=== PATIENT | male | born 1990 | race Caucasian/White ===

== ENCOUNTER 2020-07-14 13:21 | Emergency (ER) | payer OTHER ==
[2020-07-14 13:34] VITALS: BP 171/77; PULSE 101; RESP 18; TEMP 97.9
--- NOTE | 2020-07-14 14:07 | ED ---
General Adult HPI - General Chief complaint: Extremity Problem,Nontraumatic Stated complaint: Head Pressure, Poss Sinus Infection Time Seen by Provider: 07/14/20 13:48 Source: patient, RN notes reviewed, old records reviewed Mode of arrival: ambulatory Limitations: no limitations - History of Present Illness Initial comments: 29-year-old male with muscle cramps in his right leg. Symptoms have been ongoing for the past 4 days. He states his primary care physician was not available and so he presents to the emergency department. He states the cramps is keeping him up at night. He denies any injury to the right. 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 He states he has been urinating normally. No significant vomiting. No focal numbness or weakness. He is taking multiple supplements and has been taking [id number] testosterone supplement which she stopped approximately one week ago. - Related Data Previous Rx's Medication Instructions Recorded Azithromycin [Zithromax Z-pack] 250 mg PO DIRECTED #6 tab 04/26/14 Allergies Allergy/AdvReac Type Severity Reaction Status Date / Time Penicillins Allergy Anaphylaxis Verified 07/14/20 13:34 Review of Systems ROS Statement: Those systems with pertinent positive or pertinent negative responses have been documented in the HPI. ROS Other: All systems not noted in ROS Statement are negative. Past Medical History Past Medical History: No Reported History History of Any Multi-Drug Resistant Organisms: None Reported Past Surgical History: No Surgical Hx Reported Past Psychological History: Anxiety Smoking Status: Current every day smoker Past Alcohol Use History: Occasional Past Drug Use History: Cocaine, Marijuana General Exam Limitations: no limitations General appearance: alert, in no apparent distress Head exam: Present: atraumatic, normocephalic Eye exam: Present: normal appearance, PERRL ENT exam: Present: normal exam Neck exam: Present: normal inspection. Absent: tenderness, meningismus Respiratory exam: Present: normal lung sounds bilaterally. Absent: respiratory distress Cardiovascular Exam: Present: regular rate, normal rhythm GI/Abdominal exam: Present: soft. Absent: distended, tenderness, guarding, rebound Extremities exam: Present: other (Compartments are soft, no muscle spasm, distal pulses intact, normal cap refill, no induration, no erythema, no crepitus, no s igns of infection.) Neurological exam: Present: alert, oriented X3, CN II-XII intact, normal gait. Absent: motor sensory deficit Psychiatric exam: Present: normal affect, normal mood Course Vital Signs 07/14/20 13:29 Temperature 97.9 F Pulse Rate 101 H Respiratory 18 Rate Blood Pressure 171/77 O2 Sat by Pulse 100 Oximetry - Reevaluation(s) Reevaluation #1: 07/14/20 15:22 Patient does later admit to injecting testosterone into his right lower extremity, but and lateral thigh. Medical Decision Making - Medical Decision Making 29-year-old male with muscle spasm to the right leg. He has admitted that he is injected testosterone intravenous leg, lateral thigh and buttock. There is no tenderness on palpation. There is no crepitus. There is no erythema, no induration, no external signs of infection. All compartments are soft, there is normal sensation, normal cap refill, normal pulses. Patient has an elevated white blood cell count at 18.6 with no other infectious complaints. No fever. No cough. No abdominal pain or vomiting. No dysuria. His white lites are within normal limits, he has a normal creatinine kinase. I did discuss the possibility of infection in this leg and the patient will monitor closely for any pain complaints, redness, swelling or new symptoms. He will follow-up with his primary care physician regarding this leukocytosis. Will return to [facility] department with any worsening pain, fever, any external signs of infection in the right leg or any new symptoms peroid. Diagnosis: Muscle spasms, leukocytosis. - Lab Data Result diagrams: 07/14/20 14:20 07/14/20 14:20 Lab Results 07/14/20 07/14/20 Range/Units 14:20 14:20 WBC 18.6 H (3.8-10.6) k/uL RBC 5.79 (4.30-5.90) m/uL Hgb 17.2 (13.0-17.5) gm/dL Hct 52.0 (39.0-53.0) % MCV 89.7 (80.0-100.0) fL MCH 29.8 (25.0-35.0) pg MCHC 33.2 (31.0-37.0) g/dL RDW 13.7 (11.5-15.5) % Plt Count 221 (150-450) k/uL Neutrophils % 86 % Lymphocytes % 8 % Monocytes % 5 % Eosinophils % 0 % Basophils % 0 % Neutrophils # 16.0 H (1.3-7.7) k/uL Lymphocytes # 1.4 (1.0-4.8) k/uL Monocytes # 0.9 (0-1.0) k/uL Eosinophils # 0.1 (0-0.7) k/uL Basophils # 0.1 (0-0.2) k/uL Sodium 137 (137-145) mmol/L Potassium 4.6 (3.5-5.1) mmol/L Chloride 102 (98-107) mmol/L Carbon Dioxide 26 (22-30) mmol/L Anion Gap 9 mmol/L BUN 20 (9-20) mg/dL Creatinine 1.09 (0.66-1.25) mg/dL Est GFR (CKD-EPI)AfAm >90 (>60 ml/min/1.73 sqM) Est GFR (CKD-EPI)NonAf >90 (>60 ml/min/1.73 sqM) Glucose 112 H (74-99) mg/dL Calcium 10.2 (8.4-10.2) mg/dL Magnesium 1.8 (1.6-2.3) mg/dL Total Bilirubin 0.5 (0.2-1.3) mg/dL AST 17 (17-59) U/L ALT 16 (4-49) U/L Alkaline Phosphatase 79 (38-126) U/L Creatine Kinase 66 (55-170) U/L Total Protein 8.2 (6.3-8.2) g/dL Albumin 5.0 (3.5-5.0) g/dL Disposition Clinical Impression: Muscle spasm, Leukocytosis Disposition: HOME SELF-CARE Condition: Fair Instructions (If sedation given, give patient instructions): Muscle Spasm (ED), Leukocytosis (ED) Additional Instructions: Please follow with her primary care physician for repeat lab testing in one week. Please return to the emergency department with any worsening pain, signs of infection in the right leg, new symptoms, or fever. Is patient prescribed a controlled substance at d/c from ED?: No Referrals: Amor George MD [Primary Care Provider] - 1-2 days Time of Disposition: 15:24
[2020-07-14 14:47] LABS: ALT 16 U/L (4-49); AST 17 U/L (17-59); African American GFR (CKD) >90 (>60 ml/min/1.73 sqM); Alkaline Phosphatase 79 U/L (38-126); Anion Gap 9 mmol/L; Blood Urea Nitrogen 20 mg/dL (9-20); Calcium 10.2 mg/dL (8.4-10.2); Carbon Dioxide 26 mmol/L (22-30); Chloride 102 mmol/L (98-107); Creatine Kinase 66 U/L (55-170); Glucose 112 mg/dL (74-99); Magnesium 1.8 mg/dL (1.6-2.3); Non-African American GFR(CKD) >90 (>60 ml/min/1.73 sqM); Potassium 4.6 mmol/L (3.5-5.1); Sodium 137 mmol/L (137-145); Total Bilirubin 0.5 mg/dL (0.2-1.3); Total Protein 8.2 g/dL (6.3-8.2)
[2020-07-14 14:50] LABS: Basophils # (A) 0.1 k/uL (0-0.2); Basophils % (A) 0 %; Eosinophils # (A) 0.1 k/uL (0-0.7); Eosinophils % (A) 0 %; HGB 17.2 gm/dL (13.0-17.5); Lymphocytes # (A) 1.4 k/uL (1.0-4.8); Lymphocytes % (A) 8 %; MCH 29.8 pg (25.0-35.0); MCHC 33.2 g/dL (31.0-37.0); MCV 89.7 fL (80.0-100.0); Mean Platelet Volume 8.4; Monocytes # (A) 0.9 k/uL (0-1.0); Monocytes % (A) 5 %; Neutrophils % (A) 86 %; Platelet Count 221 k/uL (150-450); RBC 5.79 m/uL (4.30-5.90); RDW 13.7 % (11.5-15.5); WBC 18.6 k/uL (3.8-10.6)
== END 2020-07-14 15:30 | disposition home or self-care (01) ==
LOC: EC 13:21
DX: R25.2 Cramp and spasm (principal); D72.829 Elevated white blood cell count, unspecified; F17.200 Nicotine dependence, unspecified, uncomplicated; Z88.0 Allergy status to penicillin
CPT/HCPCS: 36415; 80053; 82550; 83735; 85025; 99283

== ENCOUNTER 2020-09-30 15:38 | Emergency (ER) | payer OTHER ==
[2020-09-30 15:45] VITALS: RESP 18
[2020-09-30] MEDS ORDERED: OXYMETAZOLINE 0.05% NASL SPRAY 1 SPRAY BOTTLE NASAL STA (16:17)
[2020-09-30] MEDS ORDERED: LIDOCAINE/EPINEPHR/TETRACAINE 5 ML BOTTLE TOPICAL STA (16:17)
--- NOTE | 2020-09-30 16:43 | ED ---
General Adult HPI - General Chief complaint: ENT Stated complaint: Nose Bleed Time Seen by Provider: 09/30/20 15:56 Source: patient, RN notes reviewed Mode of arrival: ambulatory Limitations: no limitations - History of Present Illness Initial comments: 29-year-old male presents to the emergency room for a chief complaint of nosebleed. Patient states since Wednesday he has had intermittent nosebleed out of the right nostril. States he went to another emergency center and was given a nose clamp. States this did help with that time however he was at work today and started to bleed again. Patient put some Kleenex in his nose and came back to this emergency room. Patient denies any blood going down the back of his throat. Denies blood coming out of both nostrils.Patient has no other complaints at this time including shortness of breath, chest pain, abdominal pain, nausea or vomiting, headache, or visual changes. - Related Data Previous Rx's Medication Instructions Recorded Azithromycin [Zithromax Z-pack (6 250 mg PO DIRECTED #6 tab 04/26/14 tabs)] Allergies Allergy/AdvReac Type Severity Reaction Status Date / Time Penicillins Allergy Anaphylaxis Verified 09/30/20 15:42 Review of Systems ROS Statement: Those systems with pertinent positive or pertinent negative responses have been documented in the HPI. ROS Other: All systems not noted in ROS Statement are negative. Past Medical History Past Medical History: No Reported History History of Any Multi-Drug Resistant Organisms: None Reported Past Surgical History: No Surgical Hx Reported Past Psychological History: Anxiety Smoking Status: Current every day smoker Past Alcohol Use History: Occasional Past Drug Use History: Cocaine, Marijuana General Exam Limitations: no limitations General appearance: alert, in no apparent distress Head exam: Present: atraumatic, normocephalic, normal inspection Eye exam: Present: normal appearance, PERRL, EOMI. Absent: scleral icterus, conjunctival injection, periorbital swelling ENT exam: Present: normal exam, normal oropharynx (No blood in the back of the oropharynx.), mucous membranes moist, TM's normal bilaterally, other (No active bleeding out of the nose.) Neck exam: Present: normal inspection, full ROM. Absent: tenderness, meningismus, lymphadenopathy Respiratory exam: Present: normal lung sounds bilaterally. Absent: respiratory distress, wheezes, rales, rhonchi, stridor Cardiovascular Exam: Present: regular rate, normal rhythm, normal heart sounds. Absent: systolic murmur, diastolic murmur, rubs, gallop, clicks GI/Abdominal exam: Present: soft, normal bowel sounds. Absent: distended, tenderness, guarding, rebound, rigid Course Vital Signs 09/30/20 09/30/20 15:43 16:51 Temperature 98.7 F 98.6 F Pulse Rate 102 H 80 Respiratory 18 18 Rate Blood Pressure 132/82 136/98 O2 Sat by Pulse 100 100 Oximetry Medical Decision Making - Medical Decision Making Patient presents with no active bleeding from the right nostril. 2 sprays of Afrin was applied and nose was clamped for 20 minutes. Patient was able to am bulate around the emergency room without recurrence of bleeding. As this is patient's second ER visit for nosebleed I did offer nasal packing however patient refuses stating she would try to use Afrin at home if it starts again. If he cannot get it to stop he will return for nasal packing at that time. Disposition Clinical Impression: Nosebleed Disposition: HOME SELF-CARE Condition: Good Instructions (If sedation given, give patient instructions): Nosebleed (ED) Additional Instructions: Bleeding recurs spray 2 sprays of Afrin in each nostril and clamp for 20 minutes. If this does not help repeat this process for more time. If bleeding still does not stop return to the emergency room for nasal packing. Otherwise follow-up with ENT. Return for any worsening symptoms. Is patient prescribed a controlled substance at d/c from ED?: No Referrals: Amor George MD [Primary Care Provider] - 1-2 days Kennedy Perry MD [STAFF PHYSICIAN] - 1-2 days Time of Disposition: 16:53
[2020-09-30 16:52] VITALS: BP 136/98; PULSE 80; TEMP 98.6
== END 2020-09-30 17:02 | disposition home or self-care (01) ==
LOC: EC 15:38
DX: R04.0 Epistaxis (principal); F17.200 Nicotine dependence, unspecified, uncomplicated; Z88.0 Allergy status to penicillin
CPT/HCPCS: 99283

== ENCOUNTER 2020-10-04 18:15 | Emergency (ER) | payer OTHER ==
[2020-10-04] MEDS ORDERED: OXYMETAZOLINE 0.05% NASL SPRAY 1 SPRAY BOTTLE NASAL STA ×2 (18:52→20:15)
[2020-10-04] MEDS ORDERED: SILVER NITRATE APPLICATOR 1 EACH STICK..EA. TOPICAL STA (19:26)
--- NOTE | 2020-10-04 19:42 | ED ---
ENT HPI - General Chief complaint: ENT Stated complaint: Bloody Nose Time Seen by Provider: 10/04/20 18:37 Source: patient Mode of arrival: ambulatory Limitations: no limitations - History of Present Illness Initial comments: 29-year-old male presenting to emergency Department with chief complaint of a bloody nose. Patient states she has been having intermittent episodes of epistaxis for the past 4 days. Patient states he was able to typically keep it under control with pressure and [id number] medication. However, states the bleeding that began today would not resolve. He denies any use of blood thinners or any trauma to the nose. States about 4-5 days ago he scratched the inside of his nausea well Gracia usual because he thought there was some cement in there from his job. He reports the bleeding is from the right nostril only. - Related Data Previous Rx's Medication Instructions Recorded Azithromycin [Zithromax Z-pack (6 250 mg PO DIRECTED #6 tab 04/26/14 tabs)] Allergies Allergy/AdvReac Type Severity Reaction Status Date / Time Penicillins Allergy Anaphylaxis Verified 10/04/20 18:19 Review of Systems ROS Statement: Those systems with pertinent positive or pertinent negative responses have been documented in the HPI. ROS Other: All systems not noted in ROS Statement are negative. Past Medical History Past Medical History: No Reported History History of Any Multi-Drug Resistant Organisms: None Reported Past Surgical History: No Surgical Hx Reported Past Psychological History: Anxiety Smoking Status: Current every day smoker Past Alcohol Use History: Occasional Past Drug Use History: Cocaine, Marijuana General Exam Limitations: no limitations General appearance: alert, in no apparent distress Head exam: Present: atraumatic, normocephalic, normal inspection Eye exam: Present: normal appearance, PERRL, EOMI Pupils: Present: normal accommodation ENT exam: Present: normal exam, normal oropharynx (Right nostril epistaxis. Not able to detect the source of the bleeding.), mucous membranes moist, TM's normal bilaterally, normal external ear exam Neck exam: Present: normal inspection, full ROM. Absent: tenderness Respiratory exam: Present: normal lung sounds bilaterally. Absent: respiratory distress, wheezes, rales Cardiovascular Exam: Present: regular rate, normal rhythm, normal heart sounds. Absent: systolic murmur, diastolic murmur Extremities exam: Present: normal inspection, full ROM, normal capillary refill. Absent: tenderness, pedal edema, joint swelling, calf tenderness Back exam: Present: normal inspection, full ROM. Absent: tenderness, CVA tenderness (R), CVA tenderness (L) Neurological exam: Present: alert, oriented X3 Psychiatric exam: Present: normal affect, normal mood Skin exam: Present: warm, dry, intact, normal color Course Vital Signs 10/04/20 10/04/20 10/04/20 18:18 18:27 19:00 Temperature 97.3 F L Pulse Rate 99 Respiratory 18 Rate Blood Pressure 167/138 146/94 152/95 O2 Sat by Pulse 100 Oximetry Medical Decision Making - Medical Decision Making 29-year-old male presenting to the emergency department chief complaint of bloody nose. Physical examination, patient does have right-sided epistaxis. I was not able to visualize source of bleeding. initially I applied Afrin and direct pressure. This work for a short period time that the epistaxis resumed. Nasal packing was performed with a Rhino Rocket. Patient tolerated procedure well. He was given Tylenol 3 starter pack for pain. He has an appointment on Wednesday to see Dr. Peres. Patient will be be started on antibiotics. Return parameters thoroughly discussed with patient was understanding and agreeable. Case discussed with physician. Disposition Clinical Impression: Right-sided epistaxis Disposition: HOME SELF-CARE Condition: Stable Instructions (If sedation given, give patient instructions): Nosebleed (ED) Additional Instructions: Continue to use the Afrin. Follow up with an ENT specialist. Return to emergency department if symptoms worsen. Is patient prescribed a controlled substance at d/c from ED?: No Referrals: Amor George MD [Primary Care Provider] - 1-2 days Kennedy Perry MD [STAFF PHYSICIAN] - 1-2 days Time of Disposition: 20:16
[2020-10-04] MEDS ORDERED: ACET/COD 300 MG/30 MG STARTER PACK 6 TAB BTL PO STA (20:46)
[2020-10-04 21:31] VITALS: BP 134/90; PULSE 90; RESP 16; TEMP 98.6
== END 2020-10-04 21:30 | disposition home or self-care (01) ==
LOC: EC 18:15
DX: R04.0 Epistaxis (principal); F17.200 Nicotine dependence, unspecified, uncomplicated; Z88.0 Allergy status to penicillin
CPT/HCPCS: 30901; 99283

== ENCOUNTER 2021-05-14 | Emergency (ER) | payer OTHER | END 2021-05-14 09:38 | disposition home or self-care (01) | CPT/HCPCS: 36415; 74177; 80053; 81001; 83690; 85025; 93005; 96361; 96374; 96375; 99284 ==

== ENCOUNTER 2021-05-16 07:12 | Emergency (ER) | payer OTHER ==
[2021-05-16 07:17] VITALS: RESP 18
[2021-05-16] MEDS ORDERED: KETOROLAC 15 MG/ML 1 ML VIAL IM STA (07:28)
[2021-05-16] MEDS ORDERED: traMADol 50 MG STARTER PACK 3 TAB BTL PO STA (07:29)
[2021-05-16] MEDS ORDERED: TAMSULOSIN 0.4 MG CAP.ER.24H PO STA (07:29)
--- NOTE | 2021-05-16 07:35 | ED ---
General Adult HPI - General Chief complaint: Abdominal Pain Stated complaint: RT side flank pain Time Seen by Provider: 05/16/21 07:15 Source: patient, RN notes reviewed, old records reviewed Mode of arrival: ambulatory Limitations: no limitations - History of Present Illness Initial comments: This is a 30-year-old male who presents emergency department stating that he was diagnosed with kidney stones last emesis here. Patient states the flank pain continues and he has yet to follow up with urology. She states she was discharged without any medications. Patient states the pain is been ongoing since he left. Patient denies any fever chills. Patient denies any hematuria or frequency. Patient denies any dysuria. Patient denies any abdominal pain. Patient states the pain is mostly in the right flank just like it was last time. Patient a computed tomography scan last time showing only stones in the kidney and stones in the bladder no stones that were obstructing. Patient denies any vomiting or diarrhea patient denies any chest pain or difficulty breathing - Related Data Previous Rx's Medication Instructions Recorded Azithromycin [Zithromax Z-pack (6 250 mg PO DIRECTED #6 tab 04/26/14 tabs)] Doxycycline Monohydrate [Monodox] 100 mg PO Q12HR #20 cap 10/04/20 Ketorolac [Toradol] 10 mg PO Q6HR #15 tab 05/16/21 Tamsulosin [Flomax] 0.4 mg PO DAILY #10 cap 05/16/21 Allergies Allergy/AdvReac Type Severity Reaction Status Date / Time Penicillins Allergy Anaphylaxis Verified 05/16/21 07:14 Review of Systems ROS Statement: Those systems with pertinent positive or pertinent negative responses have been documented in the HPI. ROS Other: All systems not noted in ROS Statement are negative. Past Medical History Past Medical History: No Reported History Additional Past Medical History / Comment(s): kidney stones History of Any Multi-Drug Resistant Organisms: None Reported Past Surgical History: No Surgical Hx Reported Past Psychological History: Anxiety Smoking Status: Current every day smoker Past Alcohol Use History: None Reported Past Drug Use History: Cocaine, Marijuana General Exam - General Exam Comments Initial Comments: GENERAL: Patient is well-developed and well-nourished. Patient is nontoxic and well- hydrated and is in mild distress. ENT: Neck is soft and supple. No significant lymphadenopathy is noted. Oropharynx is clear. Moist mucous membranes. Neck has full range of motion without eliciting any pain. EYES: The sclera were anicteric and conjunctiva were pink and moist. Extraocular movements were intact and pupils were equal round and reactive to light. Eyelids were unremarkable. PULMONARY: Unlabored respirations. Good breath sounds bilaterally. No audible rales rhonchi or wheezing was noted. CARDIOVASCULAR: There is a regular rate and rhythm without any murmurs gallops or rubs. ABDOMEN: Soft and nontender with normal bowel sounds. SKIN: Skin is clear with no lesions or rashes and otherwise unremarkable. NEUROLOGIC: Patient is alert and oriented x3. Cranial nerves II through XII are grossly intact. Motor and sensory are also intact. Normal speech, volume and content. Symmetrical smile. MUSCULOSKELETAL: Normal extremities with adequate strength and full range of motion. LYMPHATICS: No significant lymphadenopathy is noted PSYCHIATRIC: Normal psychiatric evaluation. Limitations: no limitations Course Vital Signs 05/16/21 07:14 Temperature 98 F Pulse Rate 74 Respiratory 18 Rate Blood Pressure 153/88 O2 Sat by Pulse 100 Oximetry Disposition Clinical Impression: Kidney stone Disposition: HOME SELF-CARE Instructions (If sedation given, give patient instructions): Kidney Stones (ED) Prescriptions: Tamsulosin [Flomax] 0.4 mg PO DAILY #10 cap Ketorolac [Toradol] 10 mg PO Q6HR #15 tab Is patient prescribed a controlled substance at d/c from ED?: No Referrals: Amor George MD [Primary Care Provider] - 1-2 days Time of Disposition: 08:29
--- NOTE | 2021-05-16 08:16 | XR ---
EXAMINATION TYPE: XR KUB DATE OF EXAM: 05/16/2021 Comparison: Correlation CT 05/14/2021 Clinical History: 30 year-old male with right flank pain, Kidney stone Findings: A few small air-fluid levels in the right mid abdomen likely transient. Nonobstructive bowel gas monika jen. No significant stool burden. No suspicious renal calcification. The punctate calculi near the bl adder seen on 05/14/2021 are not well demonstrated radiographically. Impression: No suspicious, radiographically apparent calculi identified. The punctate calculi in the right side o f the pelvis near the bladder are not well demonstrated radiographically.
[2021-05-16 08:43] VITALS: BP 160/90; PULSE 71; TEMP 97.9
[2021-05-16 09:15] LABS: Appearance,Urine Clear (Clear); Bilirubin,Urine Negative (Negative); Blood,Urine Large (Negative); Color,Urine Yellow; Glucose,Urine (UA) Negative (Negative); Ketones,Urine Negative (Negative); Leukocyte Esterase,Urine Negative (Negative); Mucus,Urine Few /hpf; Nitrite,Urine Negative (Negative); Protein,Urine Trace (Negative); RBC,Urine >182 /hpf (0-5); Specific Gravity,Urine 1.028 (1.001-1.035); Urobilinogen,Urine <2.0 mg/dL (<2.0); WBC,Urine 1 /hpf (0-5)
== END 2021-05-16 08:38 | disposition home or self-care (01) ==
LOC: EC 07:12
DX: N20.0 Calculus of kidney (principal); F41.9 Anxiety disorder, unspecified; F17.200 Nicotine dependence, unspecified, uncomplicated; F14.90 Cocaine use, unspecified, uncomplicated; F12.90 Cannabis use, unspecified, uncomplicated; Z88.0 Allergy status to penicillin
CPT/HCPCS: 81001; 74018; 99284; 96372; J1885

== ENCOUNTER 2022-01-17 11:53 | Emergency (ER) | payer OTHER ==
[2022-01-17] MEDS ORDERED: MORPHINE SULFATE 4 MG/ML SYRINGE IM STA (12:19)
[2022-01-17] MEDS ORDERED: LIDOCAINE 1% INJ 10MG/ML (20 ML MDV) SQ ONE (12:20)
[2022-01-17] MEDS ORDERED: CLINDAMYCIN 150 MG CAP PO STA (12:23)
[2022-01-17] MEDS ORDERED: DIPH,PERTUS(ACELL)TETVAC-LF 0.5 ML VIAL IM ONE (12:24)
--- NOTE | 2022-01-17 12:47 | ED ---
Fall HPI - General Chief Complaint: Fall Stated Complaint: Lacerations on arms, facial injuries Time Seen by Provider: 01/17/22 12:05 Source: patient Mode of arrival: ambulatory - History of Present Illness Initial Comments: Patient is a 31-year-old male who presents to the emergency department due to a fall this morning down concrete steps at his home. Patient reports he drank 3 shots of vodka and was smoking marijuana at 9:00 AM today when he went to walk outside and fell down 6 steps at his home onto gravel. Patient landed on the front of his face, left chest, and bilateral forearms. He did not lose consciousness. He is not on blood thinners. Patient reports he was able to ambulate after the fall and went inside his home where cut his right forearm continued to bleed. Patient believes he lost consciousness briefly laying in his bed due to prolonged bleeding. Patient currently reports pain in the nose, left ribs, right forearm, and left elbow. He has no other concerns at this time including fever, chills, shortness of breath, chest pain, palpitations, abdominal pain, nausea, vomiting. Last tetanus shot is unknown. - Related Data Previous Rx's Medication Instructions Recorded Azithromycin [Zithromax Z-pack (6 250 mg PO DIRECTED #6 tab 04/26/ tabs)] Doxycycline Monohydrate [Monodox] 100 mg PO Q12HR #20 cap 10/04/20 Ketorolac [Toradol] 10 mg PO Q6HR #15 tab 05/16/21 Tamsulosin [Flomax] 0.4 mg PO DAILY #10 cap 05/16/21 Clindamycin HCl 300 mg PO Q6HR 7 Days #28 cap 01/17/22 Allergies Allergy/AdvReac Type Severity Reaction Status Date / Time Penicillins Allergy Anaphylaxis Verified 01/17/22 12:01 Review of Systems ROS Statement: Those systems with pertinent positive or pertinent negative responses have been documented in the HPI. ROS Other: All systems not noted in ROS Statement are negative. Past Medical History Past Medical History: No Reported History Additional Past Medical History / Comment(s): kidney stones History of Any Multi-Drug Resistant Organisms: None Reported Past Surgical History: No Surgical Hx Reported Past Psychological History: Anxiety Smoking Status: Current every day smoker Past Alcohol Use History: Occasional Past Drug Use History: Cocaine, Marijuana General Exam Limitations: no limitations General appearance: alert, in no apparent distress Head exam: Present: atraumatic, normocephalic, normal inspection Eye exam: Present: normal appearance, PERRL ENT exam: Present: other (Obvious deformity of the nose. Dried blood in the bilateral nares. Otoscope exam reveals no active bleeding of the bilateral nares.) Neck exam: Present: normal inspection. Absent: tenderness Respiratory exam: Present: normal lung sounds bilaterally, chest wall tenderness (Left sided at the third to fourth rib). Absent: decreased breath sounds Cardiovascular Exam: Present: normal rhythm, tachycardia GI/Abdominal exam: Present: soft. Absent: distended, tenderness, guarding, rebound, rigid Left Elbow exam: Present: full ROM, abrasion, effusion. Absent: normal inspection, tenderness, swelling, laceration, ecchymosis, deformity, crepitus, dislocation, erythema Forearm Wrist exam: Present: normal inspection, full ROM. Absent: tenderness Hand Wrist exam: Present: normal inspection, full ROM. Absent: tenderness Vascular: Present: normal capillary refill. Absent: vascular compromise Right Upper Arm exam: Present: normal inspection, full ROM. Absent: tenderness Elbow exam: Present: normal inspection, full ROM. Absent: tenderness Forearm Wrist exam: Present: full ROM, laceration (anterior forearm, muscle fascia is visible, no obvious fracture or foreign body). Absent: normal inspection, ecchymosis, deformity Hand Wrist exam: Present: normal inspection, full ROM. Absent: tenderness Neuro motor exam: Present: wrist extension intact, thumb opposition intact, thumb IP flexion intact, thumb adduction intact, fingers 2-5 abduction intact Neurosensory exam: Present: radial nerve intact, ulnar nerve intact, median nerve intact Vascular: Present: normal capillary refill, radial pulse, ulnar pulse. Absent: vascular compromise, Pallo Neurological exam: Present: alert, oriented X3, CN II-XII intact Psychiatric exam: Present: normal affect, normal mood Skin exam: Present: warm, dry, intact, normal color. Absent: rash Course Vital Signs 01/17/22 01/17/22 11:56 15:33 Temperature 98.7 F 98.3 F Pulse Rate 112 H 72 Respiratory 22 16 Rate Blood Pressure 150/92 134/62 O2 Sat by Pulse 99 96 Oximetry Procedures - Laceration Laceration #1 Consent Obtained: verbal consent Indication: laceration Site: upper extremity (Right medial forearm) Description: irregular Depth: simple, single layer (Laceration involves adipose tissue and muscle fascia was visualized) Sedation/Analgesia: none Anesthetic Used: lidocaine 1% Anesthesia Technique: local infiltration Pre-repair: wound explored, irrigated extensively, deep structures intact Type of Sutures: nylon Size of Sutures: 5-0 Number of Sutures: 12 Technique: simple, interrupted Patient Tolerated Procedure: no complications - Orthopedic Splinting/Casting Injury #1 Side: left Upper Extremity Injury Location: elbow Upper Extremity Immobilizer: sling/shoulder immobilizer, posterior splint Medical Decision Making - Medical Decision Making This is a 31-year-old male who presents due to a fall this morning down steps onto gravel. Thorough history and examination were performed. CT of the brain and C-spine without contrast, CT of the facial bones without contrast, chest x- ray, left elbow x-ray, and right forearm x-ray were obtained. CT of the brain and C-spine without contrast reveals no acute intracranial hemorrhage, mass effect, or midline shift seen and no acute fracture or dislocation in the cervical spine. CT of the facial bones without contrast reveals no evidence of acute trauma. Chest x-ray reveals no acute cardiopulmonary process. Left elbow x-ray reveals suggestion of joint effusion with no definite evidence of fracture. Right forearm x-ray reveals no focal intraosseous abnormality or fracture with soft tissue defect and tiny punctate radiopaque foreign body. Patient given dose of clindamycin and tetanus shot in the emergency department. Forehead laceration was irrigated extensively and exofin was used to approximate the wound with no complications. Left elbow abrasion was irrigated and placed in a posterior long arm splint and sling. Splint/sling education was provided. Right forearm laceration was explored extensively however foreign body was not located. The wound was irrigated thoroughly and well approximated with 12 sutures. There were no complications including increased pain and bleeding. Wound education was provided. Patient was referred to military logistics specialist for left elbow injury and instructed to keep the splint clean and dry until orthopedic evaluation. He was instructed to return to the emergency department in 7-10 days for suture removal. Return parameters were discussed. I advised patient to return to the emergency department if he experienced new, concerning, or worsening symptoms. I prescribed him clindamycin and a short course of Tylenol with codeine. Patient was counseled on smoking cessation and alcohol use for 15 minutes. He verbalizes understanding and is agreeable to plan. Dr. Richards is my attending. Disposition Clinical Impression: Fall, Laceration, Elbow joint effusion Disposition: HOME SELF-CARE Condition: Good Instructions (If sedation given, give patient instructions): Fall Prevention (ED) Additional Instructions: Keep wound clean and dry. Take clindamycin as prescribed to prevent infection. You may take Tylenol with Codeine as prescribed for pain relief. Follow-up with military logistics specialist at earliest available appointment for left elbow injury. Keep the splint dry and clean. Please keep sling on until orthopedic evaluation. Return to the emergency department if you experience new, concerning, or worsening symptoms including but not limited to increased pain, swelling, redness around the wound or fevers/chills. Prescriptions: Clindamycin HCl 300 mg PO Q6HR 7 Days #28 cap Is patient prescribed a controlled substance at d/c from ED?: No Referrals: Amor George MD [Primary Care Provider] - 1-2 days Rio Lowry MD [STAFF PHYSICIAN] - 1-2 days Time of Disposition: 15:08
[2022-01-17] MEDS ORDERED: TOPICAL SKIN ADHESIVE 1 EACH AMP TOPICAL ONE (12:50)
--- NOTE | 2022-01-17 12:50 | CT ---
EXAMINATION TYPE: CT brain cspine wo con DATE OF EXAM: 01/17/2022 COMPARISON: None HISTORY: fall CT DLP: 1139.4 mGycm Automated exposure control for dose reduction was used. TECHNIQUE: CT scan of the head and cervical spine are performed without contrast. FINDINGS: There is no acute intracranial hemorrhage, mass effect, or midline shift identified. The ventricles and sulci are within normal limits in size. The globes are intact and the visualized sin uses are clear. Cervical spine is visualized in its entirety from C1 through upper thoracic levels and demonstrates s atisfactory alignment without evidence of acute fracture or dislocation. Prevertebral soft tissue ap pears within normal limits. The C1-C2 articulation is unremarkable. IMPRESSION: 1. There is no acute fracture or dislocation evident in the cervical spine. 2. No acute intracranial hemorrhage, mass effect, or midline shift is seen.
--- NOTE | 2022-01-17 12:53 | CT ---
EXAMINATION TYPE: CT facial bones wo con DATE OF EXAM: 01/17/2022 COMPARISON: None HISTORY: fall CT DLP: 1139.4 mGycm Automated exposure control for dose reduction was used. TECHNIQUE: CT scan of the sinuses is performed without contrast, axial images are obtained, coronal r eformatted images are also reviewed. FINDINGS: The visualized osseous structures including the mandible, maxilla and orbital rims are inta ct without evidence of fracture. There is mild chronic inflammatory change in the right maxillary sinus with mucosal thickening includ ing mucosal thickening in the ostiomeatal complexes. There are no air-fluid levels in the paranasal s inuses suggest acute inflammation or hemorrhage. The intraorbital contents appear normal and symmetric. Mastoid air cells and middle ear cavities are well aerated. IMPRESSION: No evidence of acute trauma. Chronic inflammatory changes involving the right maxillary s inus and ostiomeatal complex.
--- NOTE | 2022-01-17 12:55 | XR ---
EXAMINATION TYPE: XR chest 2V DATE OF EXAM: 01/17/2022 COMPARISON: NONE HISTORY: Chest pain and left rib pain following fall. TECHNIQUE: Frontal and lateral views of the chest are obtained. FINDINGS: There is no focal air space opacity, pleural effusion, or pneumothorax seen. The cardiac silhouette size is within normal limits. The osseous structures are intact. IMPRESSION: No acute cardiopulmonary process.
--- NOTE | 2022-01-17 12:58 | XR ---
Left elbow. HISTORY: Pain following trauma COMPARISON: None TECHNIQUE: 3 views of left elbow were obtained. There is no fracture or focal intraosseous abnormality. There is suggestion of a small joint effusion with distortion of the anterior fat pad but no definite fracture is seen. IMPRESSION: Suggestion of joint effusion with no definite evidence of fracture. If elbow pain persists, short-te rm follow-up is recommended.
--- NOTE | 2022-01-17 12:59 | XR ---
Right forearm. HISTORY: Pain following trauma. COMPARISON: None. TECHNIQUE: 2 views the right forearm were obtained findings: There is no fracture or focal intraosseous abnormality. Soft tissue defect in the right mid forearm. There is a suggestion of a tiny punctate radiopaque foreign body in the region of the soft tissue def ect. IMPRESSION: 1. No focal intraosseous abnormality or fracture. 2. Soft tissue defect with a tiny punctate radiopaque foreign body.
[2022-01-17] MEDS ORDERED: ALPRAZolam 0.25 MG TAB PO STA (13:08)
[2022-01-17] MEDS ORDERED: ACET/COD 300 MG/30 MG STARTER PACK 6 TAB BTL PO STA (15:07)
[2022-01-17 15:35] VITALS: BP 134/62; PULSE 72; RESP 16; TEMP 98.3
== END 2022-01-17 15:35 | disposition home or self-care (01) ==
LOC: EC 11:53
DX: S51.811A Laceration without foreign body of right forearm, initial encounter (principal); M25.422 Effusion, left elbow; F41.9 Anxiety disorder, unspecified; F17.200 Nicotine dependence, unspecified, uncomplicated; F12.90 Cannabis use, unspecified, uncomplicated; Z88.0 Allergy status to penicillin; Z87.442 Personal history of urinary calculi; Z23 Encounter for immunization; W10.8XXA Fall (on) (from) other stairs and steps, initial encounter
CPT/HCPCS: 99284; 90471; 96372; 12001; 29105; 73080; 73090; 71046; 72125; 70486; 70450; 90715; J2270; J2001

== ENCOUNTER 2023-01-20 16:35 | Emergency (ER) | payer OTHER ==
--- NOTE | 2023-01-20 17:42 | ED ---
General Adult HPI - General Stated complaint: left side abd pain Time Seen by Provider: 01/20/23 17:41 Source: patient, RN notes reviewed Mode of arrival: ambulatory Limitations: no limitations - History of Present Illness Initial comments: 32-year-old male presents emergency department with chief complaint of right flank pain. Patient states he has a history kidney stones. Patient states this feels very similar. Patient states she's had no fevers chills slight nausea. Patient states he just needs something for pain relief. Patient offers no associated symptoms. - Related Data Previous Rx's Medication Instructions Recorded Azithromycin [Zithromax Z-pack (6 250 mg PO DIRECTED #6 tab 04/26/14 tabs)] Doxycycline Monohydrate [Monodox] 100 mg PO Q12HR #20 cap 10/04/20 Ketorolac [Toradol] 10 mg PO Q6HR #15 tab 05/16/21 Tamsulosin [Flomax] 0.4 mg PO DAILY #10 cap 05/16/21 clindamycin HCL [Clindamycin HCl] 300 mg PO Q6HR 7 Days #28 cap 01/17/22 Allergies Allergy/AdvReac Type Severity Reaction Status Date / Time Penicillins Allergy Anaphylaxis Verified 01/20/23 18:16 Review of Systems ROS Statement: Those systems with pertinent positive or pertinent negative responses have been documented in the HPI. ROS Other: All systems not noted in ROS Statement are negative. Past Medical History Past Medical History: No Reported History Additional Past Medical History / Comment(s): kidney stones History of Any Multi-Drug Resistant Organisms: None Reported Past Surgical History: No Surgical Hx Reported Past Psychological History: Anxiety Smoking Status: Current every day smoker Past Alcohol Use History: Occasional Past Drug Use History: Cocaine, Marijuana General Exam General appearance: alert, in no apparent distress Head exam: Present: atraumatic, normocephalic, normal inspection Respiratory exam: Present: normal lung sounds bilaterally. Absent: respiratory distress, wheezes, rales, rhonchi, stridor Cardiovascular Exam: Present: regular rate, normal rhythm, normal heart sounds. Absent: systolic murmur, diastolic murmur, rubs, gallop, clicks GI/Abdominal exam: Present: soft, normal bowel sounds. Absent: distended, tenderness, guarding, rebound, rigid Back exam: Present: CVA tenderness (R). Absent: CVA tenderness (L) Course Vital Signs 01/20/23 18:13 Temperature 98.2 F Pulse Rate 112 H Respiratory 20 Rate Blood Pressure 141/78 O2 Sat by Pulse 98 Oximetry Medical Decision Making - Medical Decision Making Was pt. sent in by a medical professional or institution (LAMBERT Hogan, CIVIL DRAFTING TECHNICIAN, urgent care, hospital, or penitentiary...) When possible be specific @ -No Did you speak to anyone other than the patient for history (EMS, parent, family, police, friend...)? What history was obtained from this source @ -No Did you review nursing and triage notes (agree or disagree)? Why? @ -I reviewed and agree with nursing and triage notes Were old charts reviewed (outside hosp., previous admission, EMS record, old EKG, old radiological studies, urgent care reports/EKG's, penitentiary records)? Report findings @ -Prior labs and imaging were reviewed Differential Diagnosis (chest pain, altered mental status, abdominal pain women, abdominal pain men, vaginal bleeding, weakness, fever, dyspnea, syncope, headache, dizziness, GI bleed, back pain, seizure, CVA, palpatations, mental health, musculoskeletal)? @ -nDifferential Abdominal Pain Men: Appendicitis, cholecystitis, diverticulosis, ischemic bowel, pancreatitis, hepatitis, UTI, gastroenteritis, AAA, incarcerated hernia, bowel obstruction, constipation, inflammatory bowel, hepatitis, peptic ulcer disease, splenic infarction, perforated viscus, testicular torsion, this is not meant to be an all-inclusive listble EKG interpreted by me (3pts min.). @ -None X-rays interpreted by me (1pt min.). @ -None done CT interpreted by me (1pt min.). @ -None done U/S interpreted by me (1pt. min.). @ -None done What testing was considered but not performed or refused? (CT, X-rays, U/S, labs)? Why? @ -Considered x-ray, CT patient declined What meds were considered but not given or refused? Why? @ -None Did you discuss the management of the patient with other professionals (professionals i.e. LAMBERT Hogan, CIVIL DRAFTING TECHNICIAN, lab, RT, psych nurse, psychotherapist social worker, digital archivist, teacher, president and chief executive officer, mental health case manager)? Give summary @ -No Was smoking cessation discussed for >3mins.? @ -No Was critical care preformed (if so, how long)? @ -No Were there social determinants of health that impacted care today? How? (Homelessness, low income, unemployed, alcoholism, drug addiction, transportation, low edu. Level, literacy, decrease access to med. care, retirement, rehab)? @ -No Was there de-escalation of care discussed even if they declined (Discuss DNR or withdrawal of care, Hospice)? DNR status @ -No What co-morbidities impacted this encounter? (DM, HTN, Smoking, COPD, CAD, Cancer, CVA, ARF, Chemo, Hep., AIDS, mental health diagnosis, sleep apnea, morbid obesity)? @ -None Was patient admitted / discharged? Hospital course, mention meds given and route, prescriptions, significant lab abnormalities, going to OR and other pertinent info. @ -Discharge patient presented for right flank pain history kidney stones urinalysis unremarkable patient refuses imaging and lab work. Patient was discharged return parameters were discussed. Undiagnosed new problem with uncertain prognosis? @ -No Drug Therapy requiring intensive monitoring for toxicity (Heparin, Nitro, Insulin, Cardizem)? @ -No Were any procedures done? @ -No Diagnosis/symptom? @ -Right flank pain Acute, or Chronic, or Acute on Chronic? @ -Acute Uncomplicated (without systemic symptoms) or Complicated (systemic symptoms)? @ -Uncomplicated Side effects of treatment? @ -No Exacerbation, Progression, or Severe Exacerbation? @ -No Poses a threat to life or bodily function? How? (Chest pain, [place], [place], pneumonia, PE, COPD, DKA, ARF, appy, cholecystitis, CVA, Diverticulitis, Homicidal, Suicidal, threat to staff... and all critical care pts) @ -No - Lab Data Lab Results 01/20/23 Range/Units 18:16 Urine Color Yellow Urine Appearance Clear (Clear) Urine pH 8.0 (5.0-8.0) Ur Specific Fluker 1.012 (1.001-1.035) Urine Protein Negative (Negative) Urine Glucose (UA) Negative (Negative) Urine Ketones Negative (Negative) Urine Blood Negative (Negative) Urine Nitrite Negative (Negative) Urine Bilirubin Negative (Negative) Urine Urobilinogen <2.0 (<2.0) mg/dL Ur Leukocyte Esterase Negative (Negative) Disposition Clinical Impression: Flank pain Disposition: HOME SELF-CARE Condition: Stable Instructions (If sedation given, give patient instructions): Flank Pain (ED) Additional Instructions: Please return to the Emergency Department if symptoms worsen or any other concerns. Is patient prescribed a controlled substance at d/c from ED?: No Referrals: Jose Francisco Sloan MD [STAFF PHYSICIAN] - 1-2 days Time of Disposition: 18:35
[2023-01-20 18:15] VITALS: BP 141/78; PULSE 112; RESP 20; TEMP 98.2
[2023-01-20 18:32] LABS: Appearance,Urine Clear (Clear); Bilirubin,Urine Negative (Negative); Blood,Urine Negative (Negative); Color,Urine Yellow; Glucose,Urine (UA) Negative (Negative); Ketones,Urine Negative (Negative); Leukocyte Esterase,Urine Negative (Negative); Nitrite,Urine Negative (Negative); Protein,Urine Negative (Negative); Specific Gravity,Urine 1.012 (1.001-1.035); Urobilinogen,Urine <2.0 mg/dL (<2.0)
[2023-01-20] MEDS ORDERED: traMADol 50 MG STARTER PACK 3 TAB BTL PO STA (18:34)
== END 2023-01-20 18:49 | disposition home or self-care (01) ==
LOC: EC 16:35
DX: R10.9 Unspecified abdominal pain (principal); F41.9 Anxiety disorder, unspecified; F17.200 Nicotine dependence, unspecified, uncomplicated; F12.90 Cannabis use, unspecified, uncomplicated; F14.10 Cocaine abuse, uncomplicated; Z88.0 Allergy status to penicillin
CPT/HCPCS: 81003; 99284

== ENCOUNTER 2023-01-31 19:12 | Emergency (ER) | payer OTHER ==
[2023-01-31 19:19] VITALS: TEMP 97.4
[2023-01-31] MEDS ORDERED: SODIUM CHLORIDE 0.9% 1,000 ML IV STA (19:40)
[2023-01-31] MEDS ORDERED: KETOROLAC 15 MG/ML 1 ML VIAL IVP STA (19:40)
[2023-01-31] MEDS ORDERED: traMADol 50 MG STARTER PACK 3 TAB BTL PO STA (19:51)
[2023-01-31] MEDS ORDERED: ONDANSETRON 4 MG ODT STARTER PACK 2 TAB BTL PO STA (19:51)
[2023-01-31] MEDS ORDERED: traMADol 50 MG TAB PO STA (19:52)
--- NOTE | 2023-01-31 20:06 | ED ---
Abdominal Pain HPI - General Chief Complaint: Abdominal Pain Stated Complaint: Abd Pain Time Seen by Provider: 01/31/23 19:40 Source: patient, RN notes reviewed Mode of arrival: ambulatory Limitations: no limitations - History of Present Illness Initial Comments: This is a 32-year-old male who presents to the emergency department for right flank pain. Patient states that this started earlier today after getting off of work. He has a history of kidney stones and he feels like he is passing one of them. Denies any nausea or vomiting. States that he is always able to pass these on his own without difficulty, and requests a starter pack for tramadol. He declines a computed tomography scan to confirm this because it feels the same as prior kidney stones. Denies any burning with urination or blood in his urine. Not currently seeing a urologist. Denies any fevers, chills, sore throat, cough, dyspnea, chest pain, palpitations, diarrhea, back pain, or headaches. MD Complaint: abdominal pain, flank pain Location: R flank Radiation: RLQ - Related Data Home Medications Medication Instructions Recorded Confirmed No Known Home Medications 01/31/23 01/31/23 Allergies Allergy/AdvReac Type Severity Reaction Status Date / Time Penicillins Allergy Anaphylaxis Verified 01/31/23 20:21 Review of Systems ROS Statement: Those systems with pertinent positive or pertinent negative responses have been documented in the HPI. ROS Other: All systems not noted in ROS Statement are negative. Past Medical History Past Medical History: No Reported History Additional Past Medical History / Comment(s): kidney stones History of Any Multi-Drug Resistant Organisms: None Reported Past Surgical History: No Surgical Hx Reported Additional Past Surgical History / Comment(s): kidney stones Past Psychological History: Anxiety Smoking Status: Current every day smoker Past Alcohol Use History: Occasional Past Drug Use History: Cocaine, Marijuana General Exam Limitations: no limitations General appearance: alert, in no apparent distress Head exam: Present: atraumatic, normocephalic, normal inspection Respiratory exam: Present: normal lung sounds bilaterally. Absent: respiratory distress, wheezes, rales, rhonchi, stridor Cardiovascular Exam: Present: regular rate, normal rhythm, normal heart sounds. Absent: systolic murmur, diastolic murmur, rubs, gallop, clicks GI/Abdominal exam: Present: soft, tenderness (Right mid abdomen), normal bowel sounds. Absent: distended, guarding, rebound, rigid Back exam: Present: CVA tenderness (R). Absent: CVA tenderness (L) Neurological exam: Present: alert, oriented X3, CN II-XII intact Psychiatric exam: Present: normal affect, normal mood Skin exam: Present: warm, dry, intact, normal color. Absent: rash Course Vital Signs 01/31/23 01/31/23 19:16 21:00 Temperature 97.4 F L Pulse Rate 110 H 85 Respiratory 18 16 Rate Blood Pressure 164/93 128/78 O2 Sat by Pulse 98 97 Oximetry Medical Decision Making - Medical Decision Making This is a 32-year-old male who presents to the emergency department for right- sided abdominal pain/flank pain. Was pt. sent in by a medical professional or institution? @ -No Did you speak to anyone other than the patient for history? @ -No Did you review nursing and triage notes? @ -Yes, and I agree, it is accurate with regards to the patient's symptoms. Were old charts reviewed? @ -No Differential Diagnosis? @ -Differential Abdominal Pain Men: Appendicitis, cholecystitis, diverticulosis, ischemic bowel, pancreatitis, hepatitis, UTI, gastroenteritis, AAA, incarcerated hernia, bowel obstruction, constipation, inflammatory bowel, hepatitis, peptic ulcer disease, splenic infarction, perforated viscus, testicular torsion, this is not meant to be an all-inclusive list What testing was considered but not performed? (CT, X-rays, U/S, labs)? Why? @ -None What meds were considered but not given? Why? @ -None Did you discuss the management of the patient with other professionals? @ -No Did you reconcile home meds? @ -No Was smoking cessation discussed for >3mins.? @ -No Was critical care preformed (if so, how long)? @ -No Were there social determinants of health that impacted care today? How? (Homelessness, low income, unemployed, alcoholism, drug addiction, tr ansportation, low edu. Level, literacy, decrease access to med. care, [facility], rehab)? @ -No Was there de-escalation of care discussed even if they declined? (Discuss DNR or withdrawal of care, Hospice)? @ -No What co-morbidities impacted this encounter? (DM, HTN, Smoking, COPD, CAD, Cancer, CVA, Hep., AIDS, mental health diagnosis, sleep apnea, morbid obesity)? @ -None Was patient admitted / discharged? @ -Discharged. Lab work obtained and found to be nonactionable. Urinalysis negative for signs of blood or infection. Patient requests to avoid imaging at this time, due to symptoms feeling the same as prior kidney stones. I am in agreement with this. Patient given IV fluids, Toradol, and tramadol, with resolution of symptoms. Starter pack for tramadol provided per the patient's request. He is advised to take this sparingly when his pain is the most severe and was reminded that this may be sedating. Otherwise advised alternating with ibuprofen and Tylenol as needed for pain relief. Information for urology follow-up provided. Undiagnosed new problem with uncertain prognosis? @ -None Drug Therapy requiring intensive monitoring for toxicity (Heparin, Nitro, Insulin, Cardizem)? @ -None Were any procedures done? @ -None Diagnosis/symptom? @ -Right renal calculus Acute, or Chronic, or Acute on Chronic? @ -Acute Uncomplicated (without systemic symptoms) or Complicated (systemic symptoms)? @ -Uncomplicated Side effects of treatment? @ -None Exacerbation, Progression, or Severe Exacerbation] @ -Not applicable Poses a threat to life or bodily function? @ -No Return precautions reviewed in depth, the patient is instructed to return to the emergency department with any new, worsening, or concerning symptoms. Patient verbalized understanding. This case was discussed in detail with the attending ED physician, Dr. Covarrubias. Presentation, findings, and treatment plan discussed in detail as well. - Lab Data Result diagrams: 01/31/23 19:42 01/31/23 19:42 Lab Results 01/31/23 01/31/23 01/31/23 Range/Units 19:42 19:42 19:42 WBC 7.1 (3.8-10.6) k/uL RBC 5.10 (4.30-5.90) m/uL Hgb 15.4 (13.0-17.5) gm/dL Hct 45.5 (39.0-53.0) % MCV 89.2 (80.0-100.0) fL MCH 30.1 (25.0-35.0) pg MCHC 33.8 (31.0-37.0) g/dL RDW 13.4 (11.5-15.5) % Plt Count 224 (150-450) k/uL MPV 8.2 Neutrophils % 61 % Lymphocytes % 25 % Monocytes % 8 % Eosinophils % 1 % Basophils % 1 % Neutrophils # 4.4 (1.3-7.7) k/uL Lymphocytes # 1.8 (1.0-4.8) k/uL Monocytes # 0.6 (0-1.0) k/uL Eosinophils # 0.1 (0-0.7) k/uL Basophils # 0.0 (0-0.2) k/uL Sodium 137 (137-145) mmol/L Potassium 4.5 (3.5-5.1) mmol/L Chloride 103 (98-107) mmol/L Carbon Dioxide 25 (22-30) mmol/L Anion Gap 9 mmol/L BUN 8 L (9-20) mg/dL Creatinine 0.64 L (0.66-1.25) mg/dL Est GFR (CKD-EPI)AfAm >90 (>60 ml/min/1.73 sqM) Est GFR (CKD-EPI)NonAf >90 (>60 ml/min/1.73 sqM) Glucose 108 H (74-99) mg/dL Plasma Lactic Acid Kev 1.0 (0.7-2.0) mmol/L Calcium 9.2 (8.4-10.2) mg/dL Total Bilirubin 0.6 (0.2-1.3) mg/dL AST 21 (17-59) U/L ALT 18 (4-49) U/L Alkaline Phosphatase 72 (38-126) U/L Total Protein 7.6 (6.3-8.2) g/dL Albumin 4.6 (3.5-5.0) g/dL Amylase 56 (30-110) U/L Lipase 37 (23-300) U/L Urine Color Urine Appearance (Clear) Urine pH (5.0-8.0) Ur Specific Nelson (1.001-1.035) Urine Protein (Negative) Urine Glucose (UA) (Negative) Urine Ketones (Negative) Urine Blood (Negative) Urine Nitrite (Negative) Urine Bilirubin (Negative) Urine Urobilinogen (<2.0) mg/dL Ur Leukocyte Esterase (Negative) 01/31/23 Range/Units 19:42 WBC (3.8-10.6) k/uL RBC (4.30-5.90) m/uL Hgb (13.0-17.5) gm/dL Hct (39.0-53.0) % MCV (80.0-100.0) fL MCH (25.0-35.0) pg MCHC (31.0-37.0) g/dL RDW (11.5-15.5) % Plt Count (150-450) k/uL MPV Neutrophils % % Lymphocytes % % Monocytes % % Eosinophils % % Basophils % % Neutrophils # (1.3-7.7) k/uL Lymphocytes # (1.0-4.8) k/uL Monocytes # (0-1.0) k/uL Eosinophils # (0-0.7) k/uL Basophils # (0-0.2) k/uL Sodium (137-145) mmol/L Potassium (3.5-5.1) mmol/L Chloride (98-107) mmol/L Carbon Dioxide (22-30) mmol/L Anion Gap mmol/L BUN (9-20) mg/dL Creatinine (0.66-1.25) mg/dL Est GFR (CKD-EPI)AfAm (>60 ml/min/1.73 sqM) Est GFR (CKD-EPI)NonAf (>60 ml/min/1.73 sqM) Glucose (74-99) mg/dL Plasma Lactic Acid Kev (0.7-2.0) mmol/L Calcium (8.4-10.2) mg/dL Total Bilirubin (0.2-1.3) mg/dL AST (17-59) U/L ALT (4-49) U/L Alkaline Phosphatase (38-126) U/L Total Protein (6.3-8.2) g/dL Albumin (3.5-5.0) g/dL Amylase (30-110) U/L Lipase (23-300) U/L Urine Color Light Yellow Urine Appearance Clear (Clear) Urine pH 7.0 (5.0-8.0) Ur Specific Nelson 1.006 (1.001-1.035) Urine Protein Negative (Negative) Urine Glucose (UA) Negative (Negative) Urine Ketones Negative (Negative) Urine Blood Negative (Negative) Urine Nitrite Negative (Negative) Urine Bilirubin Negative (Negative) Urine Urobilinogen <2.0 (<2.0) mg/dL Ur Leukocyte Esterase Negative (Negative) Disposition Clinical Impression: Right renal stone Disposition: HOME SELF-CARE Instructions (If sedation given, give patient instructions): Kidney Stones (ED), Renal Colic (ED) Additional Instructions: Return to the emergency department with any new, worsening, or concerning symptoms. Alternate with ibuprofen and Tylenol as needed for pain relief. Follow-up with urology as listed below. Follow up with your primary care provider in 1-2 days. Is patient prescribed a controlled substance at d/c from ED?: No Referrals: Jose Francisco Sloan MD [Primary Care Provider] - 1-2 days
[2023-01-31 20:18] LABS: Appearance,Urine Clear (Clear); Bilirubin,Urine Negative (Negative); Blood,Urine Negative (Negative); Color,Urine Light Yellow; Glucose,Urine (UA) Negative (Negative); Ketones,Urine Negative (Negative); Leukocyte Esterase,Urine Negative (Negative); Nitrite,Urine Negative (Negative); Protein,Urine Negative (Negative); Specific Gravity,Urine 1.006 (1.001-1.035); Urobilinogen,Urine <2.0 mg/dL (<2.0)
[2023-01-31 20:22] LABS: Basophils % (A) 1 %; Eosinophils # (A) 0.1 k/uL (0-0.7); Eosinophils % (A) 1 %; HCT 45.5 % (39.0-53.0); HGB 15.4 gm/dL (13.0-17.5); Lymphocytes # (A) 1.8 k/uL (1.0-4.8); Lymphocytes % (A) 25 %; MCH 30.1 pg (25.0-35.0); MCHC 33.8 g/dL (31.0-37.0); MCV 89.2 fL (80.0-100.0); Mean Platelet Volume 8.2; Monocytes # (A) 0.6 k/uL (0-1.0); Monocytes % (A) 8 %; Neutrophils # (A) 4.4 k/uL (1.3-7.7); Neutrophils % (A) 61 %; Platelet Count 224 k/uL (150-450); RDW 13.4 % (11.5-15.5); WBC 7.1 k/uL (3.8-10.6)
[2023-01-31 20:36] LABS: Chloride 103 mmol/L (98-107)
[2023-01-31 20:37] LABS: ALT 18 U/L (4-49); AST 21 U/L (17-59); African American GFR (CKD) >90 (>60 ml/min/1.73 sqM); Albumin 4.6 g/dL (3.5-5.0); Alkaline Phosphatase 72 U/L (38-126); Amylase 56 U/L (30-110); Anion Gap 9 mmol/L; Blood Urea Nitrogen 8 mg/dL (9-20); Calcium 9.2 mg/dL (8.4-10.2); Carbon Dioxide 25 mmol/L (22-30); Glucose 108 mg/dL (74-99); Lipase 37 U/L (23-300); Non-African American GFR(CKD) >90 (>60 ml/min/1.73 sqM); Sodium 137 mmol/L (137-145); Total Bilirubin 0.6 mg/dL (0.2-1.3); Total Protein 7.6 g/dL (6.3-8.2)
[2023-01-31 20:47] LABS: Potassium 4.5 mmol/L (3.5-5.1)
[2023-01-31 21:16] VITALS: BP 128/78; PULSE 85; RESP 16
== END 2023-01-31 21:40 | disposition home or self-care (01) ==
LOC: EC 19:12
DX: N20.0 Calculus of kidney (principal); F41.9 Anxiety disorder, unspecified; F12.90 Cannabis use, unspecified, uncomplicated; F17.200 Nicotine dependence, unspecified, uncomplicated; Z88.0 Allergy status to penicillin
CPT/HCPCS: 36415; 80053; 82150; 83605; 83690; 85025; 81003; 99284; 96374; 96361; J1885; S0119

== ENCOUNTER 2023-05-10 09:27 | Emergency (ER) | payer OTHER ==
[2023-05-10 09:33] VITALS: RESP 18
[2023-05-10] MEDS ORDERED: SODIUM CHLORIDE 0.9% 1,000 ML IV ONE ×2 (10:15→11:50)
[2023-05-10] MEDS ORDERED: KETOROLAC 15 MG/ML 1 ML VIAL IVP STA (10:15)
[2023-05-10] MEDS ORDERED: ONDANSETRON 4 MG/2 ML VIAL IVP STA (10:15)
--- NOTE | 2023-05-10 10:15 | ED ---
General Adult HPI - General Chief complaint: Abdominal Pain Stated complaint: kidney stone Time Seen by Provider: 05/10/23 10:08 Source: patient, RN notes reviewed Mode of arrival: ambulatory Limitations: no limitations - History of Present Illness Initial comments: 32-year-old male with no significant past medical history presents to the emergency department with a chief complaint of a flank pain. Patient reports that his right flank pain, this morning. He describes as sharp that radiates to the right groin. He describes accompanying symptoms of nausea however no vomiting, fever, dysuria, hematuria. He reports he has a history of kidney stones and this feels the same. 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 Denies any vision changes, vision loss, purulent discharge - Related Data Previous Rx's Medication Instructions Recorded Ketorolac [Toradol] 10 mg PO Q8HR #15 tab 05/10/23 Tamsulosin [Flomax] 0.4 mg PO DAILY #7 cap 05/10/23 traMADol HCl [Ultram] 50 mg PO Q6H PRN #20 tab 05/10/23 Allergies Allergy/AdvReac Type Severity Reaction Status Date / Time Penicillins Allergy Anaphylaxis Verified 05/10/23 09:30 Review of Systems ROS Statement: Those systems with pertinent positive or pertinent negative responses have been documented in the HPI. ROS Other: All systems not noted in ROS Statement are negative. Past Medical History Past Medical History: No Reported History Additional Past Medical History / Comment(s): kidney stones History of Any Multi-Drug Resistant Organisms: None Reported Past Surgical History: No Surgical Hx Reported Additional Past Surgical History / Comment(s): kidney stones Past Psychological History: Anxiety Smoking Status: Current every day smoker, Vaper Past Alcohol Use History: None Reported Past Drug Use History: Marijuana General Exam - General Exam Comments Initial Comments: General: Alert, in no acute distress Head: atraumatic normocephalic. Eyes PERRL, EOMI intact, mucous membranes moist, left eyelid with mild edema Respiratory: Lungs clear to auscultation bilaterally Cardiovascular: Heart rate regular rate and rhythm Abdominal: Soft without guarding or rebound, no CVA tenderness Extremities: Normal inspection with full range of motion and normal capillary refill Neuroogic: alert and oriented 3, CN II-XII intact, able to ambulate with steady gait Skin: warm dry and intact with normal color Limitations: no limitations Course Vital Signs 05/10/23 05/10/23 09:30 14:12 Temperature 97.9 F 98.3 F Pulse Rate 108 H 99 Respiratory 18 18 Rate Blood Pressure 143/95 140/88 O2 Sat by Pulse 96 97 Oximetry Medical Decision Making - Medical Decision Making Was pt. sent in by a medical professional or institution (, [facility], [employer], urgent care, hospital, or [place] [facility] facility...) When possible be specific @ -[No] Did you speak to anyone other than the patient for history (EMS, parent, family, police, friend...)? What history was obtained from this source @ -[No] Did you review nursing and triage notes (agree or disagree)? Why? @ -[I reviewed and agree with nursing and triage notes] Were old charts reviewed (outside hosp., previous admission, EMS record, old EKG, old radiological studies, urgent care reports/EKG's, [place] [facility] facility records)? Report findings @ -[No old charts were reviewed] Differential Diagnosis (chest pain, altered mental status, abdominal pain women, abdominal pain men, vaginal bleeding, weakness, fever, dyspnea, syncope, headache, dizziness, GI bleed, back pain, seizure, CVA, palpatations, mental health, musculoskeletal)? @ -[not applicable] EKG interpreted by me (3pts min.). @ -[As above] X-rays interpreted by me (1pt min.). @ -[None done] CT interpreted by me (1pt min.). @ -CT shows 2 mm calculus in the right upper pole without evidence of hydronephrosis U/S interpreted by me (1pt. min.). @ -[None done] What testing was considered but not performed or refused? (CT, X-rays, U/S, labs)? Why? @ -[None] What meds were considered but not given or refused? Why? @ -[None] Did you discuss the management of the patient with other professionals (professionals i.e. , [facility], [employer] WORK[employer], lab, RT, psych nurse, family welfare social work professor, supervisor assembly stock, teacher, [place] customs and border officer, case assembler)? Give summary @ -[No] Was smoking cessation discussed for >3mins.? @ -[No] Was critical care preformed (if so, how long)? @ -[No] Were there social determinants of health that impacted care today? How? (Homelessness, low income, unemployed, alcoholism, drug addiction, transportation, low edu. Level, literacy, decrease access to med. care, assisted, rehab)? @ -[No] Was there de-escalation of care discussed even if they declined (Discuss DNR or withdrawal of care, Hospice)? DNR status @ -[No] What co-morbidities impacted this encounter? (DM, HTN, Smoking, COPD, CAD, Cancer, CVA, ARF, Chemo, Hep., AIDS, mental health diagnosis, sleep apnea, morbid obesity)? @ -[None] Was patient admitted / discharged? Hospital course, mention meds given and route, prescriptions, significant lab abnormalities, going to OR and other pertinent info. @ -Discharged. This is a 32-year-old male who presents to the emergency department with flank pain. Patient had a thorough history and physical exam performed while in the emergency department. Physical exam is essentially unremarkable heart rate regular rate and rhythm, lungs clear to auscultation bilaterally, abdomen soft and nontender. Patient had lab work imaging performed which was essentially negative. I discussed the results in detail with the patient who verbalized understanding and all questions were addressed. Patient was given 1L IV fluids and toradol with symptomatically relief in the emergency department. He was given a prescription for tramadol, Zofran, Flomax and encouraged to follow-up with urology. Return precautions were discussed at length with recommended close follow-up with PCP in 1-2 days. Patient discharged in stable condition. Case discussed with BROOK Young who agrees with plan of care Undiagnosed new problem with uncertain prognosis? @ -[No] Drug Therapy requiring intensive monitoring for toxicity (Heparin, Nitro, Insulin, Cardizem)? @ -[No] Were any procedures done? @ -[No] Diagnosis/symptom? @ -Flank Pain - 2mm Non-obstructing Renal Calculus Acute, or Chronic, or Acute on Chronic? @ -Acute Uncomplicated (without systemic symptoms) or Complicated (systemic symptoms)? @ -Uncomplicated Side effects of treatment? @ -[No] Exacerbation, Progression, or Severe Exacerbation? @ -[No] Poses a threat to life or bodily function? How? (Chest pain, [place], [place], pneumonia, PE, COPD, DKA, ARF, appy, cholecystitis, CVA, Diverticulitis, Homicidal, Suicidal, threat to staff... and all critical care pts) @ -Low likelihood - Lab Data Result diagrams: 05/10/23 10:24 05/10/23 10:24 Lab Results 05/10/23 05/10/23 05/10/23 Range/Units 10:24 10:24 10:24 WBC 11.2 H (3.8-10.6) k/uL RBC 4.77 (4.30-5.90) m/uL Hgb 13.9 (13.0-17.5) gm/dL Hct 41.9 (39.0-53.0) % MCV 87.8 (80.0-100.0) fL MCH 29.1 (25.0-35.0) pg MCHC 33.1 (31.0-37.0) g/dL RDW 14.2 (11.5-15.5) % Plt Count 192 (150-450) k/uL MPV 8.0 Neutrophils % 77 % Lymphocytes % 13 % Monocytes % 7 % Eosinophils % 2 % Basophils % 0 % Neutrophils # 8.6 H (1.3-7.7) k/uL Lymphocytes # 1.4 (1.0-4.8) k/uL Monocytes # 0.7 (0-1.0) k/uL Eosinophils # 0.2 (0-0.7) k/uL Basophils # 0.0 (0-0.2) k/uL Sodium 139 (137-145) mmol/L Potassium 4.2 (3.5-5.1) mmol/L Chloride 104 (98-107) mmol/L Carbon Dioxide 29 (22-30) mmol/L Anion Gap 6 mmol/L BUN 14 (9-20) mg/dL Creatinine 0.67 (0.66-1.25) mg/dL Est GFR (CKD-EPI)AfAm >90 (>60 ml/min/1.73 sqM) Est GFR (CKD-EPI)NonAf >90 (>60 ml/min/1.73 sqM) Glucose 100 H (74-99) mg/dL Calcium 8.7 (8.4-10.2) mg/dL Total Bilirubin 0.5 (0.2-1.3) mg/dL AST 15 L (17-59) U/L ALT 21 (4-49) U/L Alkaline Phosphatase 82 (38-126) U/L Total Protein 6.8 (6.3-8.2) g/dL Albumin 4.0 (3.5-5.0) g/dL Urine Color Yellow Urine Appearance Clear (Clear) Urine pH 6.5 (5.0-8.0) Ur Specific Cisco 1.013 (1.001-1.035) Urine Protein Negative (Negative) Urine Glucose (UA) Negative (Negative) Urine Ketones Negative (Negative) Urine Blood Small H (Negative) Urine Nitrite Negative (Negative) Urine Bilirubin Negative (Negative) Urine Urobilinogen <2.0 (<2.0) mg/dL Ur Leukocyte Esterase Negative (Negative) Urine RBC 6 H (0-5) /hpf Urine WBC <1 (0-5) /hpf Ur Squamous Epith Cells <1 (0-4) /hpf Urine Mucus Occasional H (None) /hpf Disposition Clinical Impression: Right flank pain Disposition: HOME SELF-CARE Condition: Stable Instructions (If sedation given, give patient instructions): Flank Pain (ED) Additional Instructions: Please return to the nearest emergency department symptoms worsen or persist Prescriptions: Tamsulosin [Flomax] 0.4 mg PO DAILY #7 cap Ketorolac [Toradol] 10 mg PO Q8HR #15 tab traMADol HCl [Ultram] 50 mg PO Q6H PRN #20 tab PRN Reason: Pain Is patient prescribed a controlled substance at d/c from ED?: No Referrals: Jose Francisco Sloan MD [Primary Care Provider] - 1-2 days Enmanuel Cm MD [STAFF PHYSICIAN] - 1-2 days Time of Disposition: 13:17
[2023-05-10] MEDS ORDERED: FLUORESCEIN STRIPS 1 MG STRIP BOTH EYES ONE (10:38)
--- NOTE | 2023-05-10 10:49 | CT ---
EXAMINATION TYPE: CT abdomen pelvis wo con DATE OF EXAM: 05/10/2023 COMPARISON: 05/14/2021 HISTORY: Left sided abdominal pain. CT DLP: 540.6 mGycm Examination of the solid and hollow viscera is limited given the lack of contrast. FINDINGS: LUNG BASES: No evidence for nodule. No evidence for infiltrate. LIVER/GB: The gallbladder is unremarkable. No space-occupying hepatic lesion. PANCREAS: No pancreatic mass identified. No inflammatory process seen. SPLEEN: No evidence for splenomegaly. No intrasplenic lesions seen. ADRENALS: No adrenal nodules identified. No evidence for thickening. KIDNEYS: No evidence for renal mass. 2 mm nonobstructing calculus upper pole right kidney. No hydrone phrosis. BOWEL: Appendix has a normal appearance. No evidence of bowel obstruction. No inflammatory process. Lymph nodes: No evidence for adenopathy greater than 1 cm. Abdominal aorta: Atheromatous changes seen. No evidence for aneurysm. Genital organs: No significant abnormality. Other: No significant abnormality. IMPRESSION: NONOBSTRUCTING CALCULUS RIGHT KIDNEY. HYDRONEPHROSIS. ACUTE INTRA-ABDOMINAL PROCESS.
[2023-05-10 10:56] LABS: Basophils % (A) 0 %; Eosinophils # (A) 0.2 k/uL (0-0.7); Eosinophils % (A) 2 %; HCT 41.9 % (39.0-53.0); HGB 13.9 gm/dL (13.0-17.5); Lymphocytes # (A) 1.4 k/uL (1.0-4.8); Lymphocytes % (A) 13 %; MCH 29.1 pg (25.0-35.0); MCHC 33.1 g/dL (31.0-37.0); MCV 87.8 fL (80.0-100.0); Monocytes # (A) 0.7 k/uL (0-1.0); Monocytes % (A) 7 %; Neutrophils # (A) 8.6 k/uL (1.3-7.7); Neutrophils % (A) 77 %; Platelet Count 192 k/uL (150-450); RBC 4.77 m/uL (4.30-5.90); RDW 14.2 % (11.5-15.5); WBC 11.2 k/uL (3.8-10.6)
[2023-05-10 10:59] LABS: ALT 21 U/L (4-49); AST 15 U/L (17-59); African American GFR (CKD) >90 (>60 ml/min/1.73 sqM); Alkaline Phosphatase 82 U/L (38-126); Anion Gap 6 mmol/L; Blood Urea Nitrogen 14 mg/dL (9-20); Calcium 8.7 mg/dL (8.4-10.2); Carbon Dioxide 29 mmol/L (22-30); Chloride 104 mmol/L (98-107); Glucose 100 mg/dL (74-99); Non-African American GFR(CKD) >90 (>60 ml/min/1.73 sqM); Potassium 4.2 mmol/L (3.5-5.1); Sodium 139 mmol/L (137-145); Total Bilirubin 0.5 mg/dL (0.2-1.3); Total Protein 6.8 g/dL (6.3-8.2)
[2023-05-10 13:00] LABS: Appearance,Urine Clear (Clear); Bilirubin,Urine Negative (Negative); Blood,Urine Small (Negative); Color,Urine Yellow; Glucose,Urine (UA) Negative (Negative); Ketones,Urine Negative (Negative); Leukocyte Esterase,Urine Negative (Negative); Mucus,Urine Occasional /hpf; Nitrite,Urine Negative (Negative); PH, Urine 6.5 (5.0-8.0); Protein,Urine Negative (Negative); RBC,Urine 6 /hpf (0-5); Specific Gravity,Urine 1.013 (1.001-1.035); Squamous Epithelial Cell,Urine <1 /hpf (0-4); Urobilinogen,Urine <2.0 mg/dL (<2.0); WBC,Urine <1 /hpf (0-5)
[2023-05-10] MEDS ORDERED: MORPHINE SULFATE 2 MG/ML SYRINGE IVP ONE (13:21)
[2023-05-10 14:15] VITALS: BP 140/88; PULSE 99; TEMP 98.3
== END 2023-05-10 14:12 | disposition home or self-care (01) ==
LOC: EC 09:27
DX: N20.0 Calculus of kidney (principal); H02.846 Edema of left eye, unspecified eyelid; F17.290 Nicotine dependence, other tobacco product, uncomplicated; F12.90 Cannabis use, unspecified, uncomplicated; Z88.0 Allergy status to penicillin
CPT/HCPCS: 36415; 80053; 85025; 81001; 74176; 99284; 96374; 96361 ×3; J2270

== ENCOUNTER 2023-07-26 13:06 | Emergency (ER) | payer OTHER ==
[2023-07-26 13:41] VITALS: BP 148/88; PULSE 99; RESP 16; TEMP 98.4
--- NOTE | 2023-07-26 13:42 | ED ---
Abdominal Pain HPI - General Source: patient, RN notes reviewed Mode of arrival: ambulatory Limitations: no limitations <Aaron Childs - Last Filed: 07/26/23 13:41> <Rohith Brown - Last Filed: 07/26/23 17:23> - General Chief Complaint: Abdominal Pain Stated Complaint: abd pain Time Seen by Provider: 07/26/23 13:41 - History of Present Illness Initial Comments: 32-year-old male presents emergency Department chief complaint of right lower quadrant, right flank pain. Patient states that this is a sudden onset. Has meant to nausea. Patient has history of kidney stones. No fevers or chills. (Aaron Childs) 32-year-old male with past medical history significant for kidney stones pre sents to ED with chief complaint of abdominal pain. Patient states this morning, woke up with onset of right lower abdominal pain/right flank pain. States symptoms are similar to history of kidney stones. Notes associated urgency/frequency however denies dysuria or hematuria. Has not taken any m edications for this. Associated nausea, no vomiting. Denies chest pain or shortness of breath. No other complaints. (Rohith Brown) - Related Data Previous Rx's Medication Instructions Recorded Ketorolac [Toradol] 10 mg PO Q8HR #15 tab 05/10/23 Tamsulosin [Flomax] 0.4 mg PO DAILY #7 cap 05/10/23 traMADol HCl [Ultram] 50 mg PO Q6H PRN #20 tab 05/10/23 Allergies Allergy/AdvReac Type Severity Reaction Status Date / Time Penicillins Allergy Anaphylaxis Verified 05/10/23 09:30 Review of Systems ROS Other: All systems not noted in ROS Statement are negative. <Aaron Childs - Last Filed: 07/26/23 13:41> ROS Other: All systems not noted in ROS Statement are negative. <Rohith Brown - Last Filed: 07/26/23 17:23> ROS Statement: Those systems with pertinent positive or pertinent negative responses have been documented in the HPI. Past Medical History Past Medical History: No Reported History Additional Past Medical History / Comment(s): kidney stones History of Any Multi-Drug Resistant Organisms: None Reported Past Surgical History: No Surgical Hx Reported Additional Past Surgical History / Comment(s): kidney stones Past Psychological History: Anxiety Smoking Status: Current every day smoker, Vaper Past Alcohol Use History: None Reported Past Drug Use History: Marijuana <Aaron Childs - Last Filed: 07/26/23 13:41> General Exam Limitations: no limitations <Aaron Childs - Last Filed: 07/26/23 13:41> Limitations: no limitations General appearance: alert Neck exam: Present: normal inspection Respiratory exam: Present: normal lung sounds bilaterally Cardiovascular Exam: Present: regular rate, normal rhythm GI/Abdominal exam: Present: soft (Tenderness palpation right lower quadrant. Right CVA tenderness to percussion. No rebound guarding or rigidity.), normal bowel sounds Back exam: Present: normal inspection Neurological exam: Present: alert, oriented X3 Skin exam: Present: warm, dry <Rohith Brown - Last Filed: 07/26/23 17:23> - General Exam Comments Initial Comments: Visual Physical Exam Vital signs reviewed General: Well-appearing, nontoxic, no acute distress. Head: Normocephalic, atraumatic Eyes: PERRLA, EOMI ENT: Airway patent Chest: Nonlabored breathing Skin: No visual rash, normal skin tone Neuro: Alert and oriented 3 Musculoskeletal: No gross abnormalities (Aaron Childs) Course Vital Signs 07/26/23 13:35 Temperature 98.4 F Pulse Rate 99 Respiratory 16 Rate Blood Pressure 148/88 O2 Sat by Pulse 99 Oximetry Medical Decision Making <Aaron Childs - Last Filed: 07/26/23 13:41> - Lab Data Result diagrams: 07/26/23 13:44 07/26/23 13:44 <Rohith Brown - Last Filed: 07/26/23 17:23> - Medical Decision Making I performed the quick note portion of this chart signed Aaron Childs PA-C (Aaron Childs) Was pt. sent in by a medical professional or institution ([facility], [facility], urgent care, hospital, or snf...) When possible be specific @ -No Did you speak to anyone other than the patient for history (EMS, parent, family, police, friend...)? What history was obtained from this source @ -No Did you review nursing and triage notes (agree or disagree)? Why? @ -I reviewed and agree with nursing and triage notes Were old charts reviewed (outside hosp., previous admission, EMS record, old EKG, old radiological studies, urgent care reports/EKG's, snf records)? Report findings @ -No old charts were reviewed Differential Diagnosis (chest pain, altered mental status, abdominal pain women, abdominal pain men, vaginal bleeding, weakness, fever, dyspnea, syncope, headache, dizziness, GI bleed, back pain, seizure, CVA, palpatations, mental health, musculoskeletal)? @ -Differential Abdominal Pain Men: Appendicitis, cholecystitis, diverticulosis, ischemic bowel, pancreatitis, hepatitis, UTI, gastroenteritis, AAA, incarcerated hernia, bowel obstruction, constipation, inflammatory bowel, hepatitis, peptic ulcer disease, splenic infarction, perforated viscus, testicular torsion, this is not meant to be an all-inclusive list EKG interpreted by me (3pts min.). @ -As above X-rays interpreted by me (1pt min.). @ -None done CT interpreted by me (1pt min.). @ -CT interpreted by me showing no evidence of appendicitis, obstructing calculus, or other acute process. U/S interpreted by me (1pt. min.). @ -None done What testing was considered but not performed or refused? (CT, X-rays, U/S, labs)? Why? @ -None What meds were considered but not given or refused? Why? @ -None Did you discuss the management of the patient with other professionals (professionals i.e. , PA, VERIFIER, lab, RT, psych nurse, social organization professor, expedition supervisor, teacher, pharmaceutical officer, case loader operator)? Give summary @ -No Was smoking cessation discussed for >3mins.? @ -No Was critical care preformed (if so, how long)? @ -No Were there social determinants of health that impacted care today? How? (Homelessness, low income, unemployed, alcoholism, drug addiction, transportation, low edu. Level, literacy, decrease access to med. care, penitentiary, r ehab)? @ -No Was there de-escalation of care discussed even if they declined (Discuss DNR or withdrawal of care, Hospice)? DNR status @ -No What co-morbidities impacted this encounter? (DM, HTN, Smoking, COPD, CAD, Cancer, CVA, ARF, Chemo, Hep., AIDS, mental health diagnosis, sleep apnea, morbid obesity)? @ -None Was patient admitted / discharged? Hospital course, mention meds given and route, prescriptions, significant lab abnormalities, going to OR and other pertinent info. @ -Discharge A 32-year-old male presenting with 1 day onset of right lower abdominal pain with associated nausea. [facility]sey studies including CBC, chemistry panel, UA unremarkable. CT abdomen/pelvis without contrast shows no evidence of obstructing calculus, appendicitis, or other acute process. Patient discharged home in stable condition. Discussed return precautions with patient who verbalizes agreement. Undiagnosed new problem with uncertain prognosis? @ -No Drug Therapy requiring intensive monitoring for toxicity (Heparin, Nitro, Insulin, Cardizem)? @ -No Were any procedures done? @ -No Diagnosis/symptom? @ -Abdominal pain Acute, or Chronic, or Acute on Chronic? @ -Acute Uncomplicated (without systemic symptoms) or Complicated (systemic symptoms)? @ -Uncomplicated Side effects of treatment? @ -No Exacerbation, Progression, or Severe Exacerbation? @ -No Poses a threat to life or bodily function? How? (Chest pain, USA, MA, pneumonia, PE, COPD, DKA, ARF, appy, cholecystitis, CVA, Diverticulitis, Homicidal, Suicidal, threat to staff... and all critical care pts) @ -No (Rohith Brown) - Lab Data Lab Results 07/26/23 07/26/23 07/26/23 Range/Units 13:41 13:44 13:44 WBC 10.6 (3.8-10.6) k/uL RBC 5.10 (4.30-5.90) m/uL Hgb 15.5 (13.0-17.5) gm/dL Hct 46.1 (39.0-53.0) % MCV 90.4 (80.0-100.0) fL MCH 30.3 (25.0-35.0) pg MCHC 33.5 (31.0-37.0) g/dL RDW 13.6 (11.5-15.5) % Plt Count 176 (150-450) k/uL MPV 8.2 Neutrophils % 66 % Lymphocytes % 21 % Monocytes % 7 % Eosinophils % 3 % Basophils % 0 % Neutrophils # 7.0 (1.3-7.7) k/uL Lymphocytes # 2.3 (1.0-4.8) k/uL Monocytes # 0.8 (0-1.0) k/uL Eosinophils # 0.3 (0-0.7) k/uL Basophils # 0.0 (0-0.2) k/uL Sodium 137 (137-145) mmol/L Potassium 4.2 (3.5-5.1) mmol/L Chloride 101 (98-107) mmol/L Carbon Dioxide 25 (22-30) mmol/L Anion Gap 11 mmol/L BUN 19 (9-20) mg/dL Creatinine 0.79 (0.66-1.25) mg/dL Est GFR (CKD-EPI)AfAm >90 (>60 ml/min/1.73 sqM) Est GFR (CKD-EPI)NonAf >90 (>60 ml/min/1.73 sqM) Glucose 95 (74-99) mg/dL Calcium 9.8 (8.4-10.2) mg/dL Total Bilirubin 0.5 (0.2-1.3) mg/dL AST 18 (17-59) U/L ALT 16 (4-49) U/L Alkaline Phosphatase 81 (38-126) U/L Total Protein 7.9 (6.3-8.2) g/dL Albumin 4.7 (3.5-5.0) g/dL Amylase 56 (30-110) U/L Lipase 81 (23-300) U/L Urine Color Yellow Urine Appearance Clear (Clear) Urine pH 6.0 (5.0-8.0) Ur Specific [place] 1.027 (1.001-1.035) Urine Protein Trace H (Negative) Urine Glucose (UA) Negative (Negative) Urine Ketones Negative (Negative) Urine Blood Negative (Negative) Urine Nitrite Negative (Negative) Urine Bilirubin Negative (Negative) Urine Urobilinogen <2.0 (<2.0) mg/dL Ur Leukocyte Esterase Negative (Negative) Disposition <Aaron Childs - Last Filed: 07/26/23 13:41> Is patient prescribed a controlled substance at d/c from ED?: No Time of Disposition: 17:23 <Rohith Brown - Last Filed: 07/26/23 17:23> Clinical Impression: Abdominal pain Disposition: HOME SELF-CARE Condition: Good Instructions (If sedation given, give patient instructions): Abdominal Pain (ED) Additional Instructions: Please return to the Emergency Department if symptoms worsen or any other concerns. Please follow-up with PCP. Referrals: Jose Francisco Sloan MD [Primary Care Provider] - 1-2 days
[2023-07-26 13:59] LABS: Basophils % (A) 0 %; Eosinophils # (A) 0.3 k/uL (0-0.7); Eosinophils % (A) 3 %; HCT 46.1 % (39.0-53.0); HGB 15.5 gm/dL (13.0-17.5); Lymphocytes # (A) 2.3 k/uL (1.0-4.8); Lymphocytes % (A) 21 %; MCH 30.3 pg (25.0-35.0); MCHC 33.5 g/dL (31.0-37.0); MCV 90.4 fL (80.0-100.0); Mean Platelet Volume 8.2; Monocytes # (A) 0.8 k/uL (0-1.0); Monocytes % (A) 7 %; Neutrophils % (A) 66 %; Platelet Count 176 k/uL (150-450); RDW 13.6 % (11.5-15.5); WBC 10.6 k/uL (3.8-10.6)
--- NOTE | 2023-07-26 14:07 | XR ---
EXAMINATION TYPE: XR KUB DATE OF EXAM: 07/26/2023 2:02 PM CLINICAL INDICATION:Male, 32 years old with history of abdominal pain; COMPARISON: None. TECHNIQUE: One radiographic view of the abdomen was obtained. FINDINGS: The bowel gas pattern is nonspecific without dilated loops of small or large bowel. There i s no evidence for organomegaly or pneumoperitoneum. The osseous structures are intact. No abnormal calcifications are present. Fecal material and gas are demonstrated throughout the colon and rectum. IMPRESSION: Nonspecific bowel gas pattern without radiographic evidence for acute process.
[2023-07-26 14:10] LABS: ALT 16 U/L (4-49); AST 18 U/L (17-59); African American GFR (CKD) >90 (>60 ml/min/1.73 sqM); Albumin 4.7 g/dL (3.5-5.0); Alkaline Phosphatase 81 U/L (38-126); Amylase 56 U/L (30-110); Anion Gap 11 mmol/L; Blood Urea Nitrogen 19 mg/dL (9-20); Calcium 9.8 mg/dL (8.4-10.2); Carbon Dioxide 25 mmol/L (22-30); Chloride 101 mmol/L (98-107); Glucose 95 mg/dL (74-99); Lipase 81 U/L (23-300); Non-African American GFR(CKD) >90 (>60 ml/min/1.73 sqM); Potassium 4.2 mmol/L (3.5-5.1); Sodium 137 mmol/L (137-145); Total Bilirubin 0.5 mg/dL (0.2-1.3); Total Protein 7.9 g/dL (6.3-8.2)
[2023-07-26 15:20] LABS: Appearance,Urine Clear (Clear); Bilirubin,Urine Negative (Negative); Blood,Urine Negative (Negative); Color,Urine Yellow; Glucose,Urine (UA) Negative (Negative); Ketones,Urine Negative (Negative); Leukocyte Esterase,Urine Negative (Negative); Nitrite,Urine Negative (Negative); Protein,Urine Trace (Negative); Specific Gravity,Urine 1.027 (1.001-1.035); Urobilinogen,Urine <2.0 mg/dL (<2.0)
[2023-07-26] MEDS ORDERED: KETOROLAC 15 MG/ML 1 ML VIAL IVP STA (15:58)
[2023-07-26] MEDS ORDERED: ONDANSETRON 4 MG/2 ML VIAL IVP STA (15:58)
[2023-07-26] MEDS ORDERED: SODIUM CHLORIDE 0.9% 1,000 ML IV STA (15:58)
--- NOTE | 2023-07-26 17:02 | CT ---
EXAMINATION TYPE: CT abdomen pelvis wo con CT DLP: 558.4 mGycm, Automated exposure control for dose reduction was used. DATE OF EXAM: 07/26/2023 4:56 PM COMPARISON: 05/10/2023 CLINICAL INDICATION:Male, 32 years old with history of r/o r stone; abd pain. r/o stone. TECHNIQUE: Axial CT of the abdomen and pelvis. Sagittal and coronal reformats were created on a [email or web address] workstation. Contrast used: (none if empty) Oral contrast used: without Oral Contrast (none if empty) FINDINGS: LOWER CHEST: Unremarkable ABDOMEN LIVER: Unremarkable GALLBLADDER AND BILE DUCTS: Unremarkable. PANCREAS: Unremarkable. SPLEEN: Unremarkable. ADRENAL GLANDS: Unremarkable. KIDNEYS AND URETERS: Nonobstructing right 2 mm calculus. No left renal calculi. No evidence for obstr uctive uropathy. PELVIS BLADDER: Unremarkable REPRODUCTIVE: Unremarkable. ABDOMEN & PELVIS STOMACH AND BOWEL: No evidence of bowel obstruction. PERITONEUM/RETROPERITONEUM: No evidence of pneumoperitoneum or free fluid. VASCULATURE: No evidence of aortic aneurysm. MUSCULOSKELETAL: No acute osseous abnormalities LYMPH NODES: No gross evidence for lymphadenopathy. SOFT TISSUE/ABDOMINAL WALL: Bilateral fat-containing inguinal hernias. Fat-containing umbilical herni a. IMPRESSION: 1. Nonobstructing right renal calculus. No evidence for obstructing uropathy. 2. The appendix is normal. 3. Bilateral fat-containing inguinal hernias.
[2023-07-26] MEDS ORDERED: traMADol 50 MG STARTER PACK 3 TAB BTL PO STA (17:21)
[2023-07-26] MEDS ORDERED: ONDANSETRON 4 MG ODT STARTER PACK 2 TAB BTL PO STA (17:24)
== END 2023-07-26 17:46 | disposition home or self-care (01) ==
LOC: EC 13:06
DX: R10.31 Right lower quadrant pain (principal); Z87.442 Personal history of urinary calculi; F17.200 Nicotine dependence, unspecified, uncomplicated; F12.90 Cannabis use, unspecified, uncomplicated; Z86.59 Personal history of other mental and behavioral disorders; Z88.0 Allergy status to penicillin
CPT/HCPCS: 36415; 74018; 74176; 80053; 81003; 82150; 83690; 85025; 99284